=== PATIENT | female | born 1950 | race Caucasian/White ===

== ENCOUNTER 2017-04-05 10:38 | Emergency (ER) | payer MEDICARE ==
[~2017-04-05] VITALS: Ht 182.9 cm; Wt 77.0 kg
[~2017-04-05 10:38] MED LIST: ALPR.5 PO; BACT800T5 PO; LISI-515 PO; LYRI50CA PO; NEXI40CA PO; PROZ20CA11 PO
[2017-04-05 10:43] VITALS: BP 156/74; PULSE 59; RESP 14; TEMP 98.4; O2SAT 98
--- NOTE | 2017-04-05 10:48 | PD ---
HPI Chief Complaint: GI Complaint Time Seen by Provider: 10:47 Travel History International Travel<30 days: No Contact w/Intl Traveler<30days: No Traveled to known affect area: No History of Present Illness HPI 66-year-old female presents the emergency department with 2 week history of nausea and vomiting. She states it's "probably just my nerves". PFSH Past Medical History Arthritis: Yes Anxiety: Yes Depression: Yes Heart Rhythm Problems: No Cancer: Yes (left breast, lumpectomy and uterine cancer,SKIN CA) Cardiovascular Problems: Yes High Cholesterol: No Chemotherapy: Yes (last dose 2012) Chest Pain: No Congestive Heart Failure: No Cerebrovascular Accident: No Diabetes: No Diminished Hearing: No Diverticulitis: Yes Fibromyalgia: Yes Gastrointestinal Disorders: No GERD: Yes Genitourinary: No Hiatal Hernia: Yes Hypertension: Yes Musculoskeletal: Yes Neurologic: No Psychiatric: Yes Reproductive: Yes Respiratory: No Integumentary: Yes (HX GANGRENE LEFT FOOT) Migraines: Yes (meditation no medication) Myocardial Infarction: No Radiation Therapy: Yes (COMPLETED 12WKS) ?: Not Past Surgical History Abdominal Surgery: Yes Appendectomy: Yes Cardiac Surgery: No Ear Surgery: No Endocrine Surgery: No Eye Surgery: No Genitourinary Surgery: No Gynecologic Surgery: Yes (uterine removed r/t cancer) Hysterectomy: Yes Neurologic Surgery: No Oral Surgery: No Thoracic Surgery: No Other Surgery: Yes (right forearm "plate"; L 4&5 fused, left chest infusaport in and out (2012)) Social History Alcohol Use: No (denies) Tobacco Use: No (QUIT ) Substance Use: Yes Allergies-Medications (Allergen,Severity, Reaction): Coded Allergies: codeine (Unverified Allergy, Severe, Nausea/Vomiting, 04/05/17) penicillin G (Unverified Allergy, Severe, rash, 04/05/17) prochlorperazine (Unverified Allergy, Severe, seizure activity, 04/05/17) amoxicillin (Unverified Allergy, Unknown, PT DOES NOT REMEMBER, 04/05/17) Reported Meds & Prescriptions Reported Meds & Active Scripts Active Bactrim DS (Sulfamethoxazole-Trimethoprim) 800-160 Mg Tab 1 Tab PO BID 7 Days Reported Ibuprofen 400 Mg Tab 400 Mg PO Q6H PRN Nexium (Esomeprazole DR) 40 Mg Capdr 40 Mg PO DAILY Xanax (Alprazolam) 0.5 Mg Tab 0.5 Mg PO Q6H PRN Prozac (Fluoxetine HCl) 20 Mg Cap 20 Mg PO DAILY Lisinopril 20 Mg Tab 20 Mg PO DAILY Lyrica (Pregabalin) 50 Mg Cap 50 Mg PO BID Data Data Last Documented VS Vital Signs Date Time Temp Pulse Resp B/P (MAP) Pulse Ox O2 Delivery O2 Flow Rate FiO2 04/05/17 10:43 98.4 59 14 156/74 (101) 98 Orders Orders Complete Blood Count With Diff (04/05/17 11:12) Comprehensive Metabolic Panel (04/05/17 11:12) ^ Insert Iv (04/05/17 11:12) Sodium Chlor 0.9% 1000 Ml Inj (Ns 1000 M (04/05/17 11:15) Ondansetron Inj (Zofran Inj) (04/05/17 11:15) Labs Laboratory Tests Test 04/05/17 12:00 White Blood Count 3.7 TH/MM3 Red Blood Count 3.88 MIL/MM3 Hemoglobin 11.9 GM/DL Hematocrit 34.1 % Mean Corpuscular Volume 88.0 FL Mean Corpuscular Hemoglobin 30.6 PG Mean Corpuscular Hemoglobin Concent 34.8 % Red Cell Distribution Width 13.5 % Platelet Count 251 TH/MM3 Mean Platelet Volume 7.6 FL Neutrophils (%) (Auto) 59.7 % Lymphocytes (%) (Auto) 27.9 % Monocytes (%) (Auto) 6.6 % Eosinophils (%) (Auto) 2.7 % Basophils (%) (Auto) 3.1 % Neutrophils # (Auto) 2.2 TH/MM3 Lymphocytes # (Auto) 1.0 TH/MM3 Monocytes # (Auto) 0.2 TH/MM3 Eosinophils # (Auto) 0.1 TH/MM3 Basophils # (Auto) 0.1 TH/MM3 CBC Comment DIFF FINAL Differential Comment Blood Urea Nitrogen 20 MG/DL Creatinine 0.85 MG/DL Random Glucose 89 MG/DL Total Protein 7.0 GM/DL Albumin 3.6 GM/DL Calcium Level 9.0 MG/DL Alkaline Phosphatase 67 U/L Aspartate Amino Transf (AST/SGOT) 21 U/L Alanine Aminotransferase (ALT/SGPT) 26 U/L Total Bilirubin 0.4 MG/DL Sodium Level 140 MEQ/L Potassium Level 4.4 MEQ/L Chloride Level 109 MEQ/L Carbon Dioxide Level 23.0 MEQ/L Anion Gap 8 MEQ/L Estimat Glomerular Filtration Rate 67 ML/MIN Emir Kee Apr 05, 2017 10:48
[2017-04-05] MEDS ORDERED: IBUP1TAB5 PO (11:07)
[2017-04-05] MEDS ORDERED: ONDANSETRON HCL 4 MG/2 ML VIAL IV PUSH ONE (11:15)
[2017-04-05] MEDS ORDERED: SODIUM CHLOR 0.9% 1000 ML INJ 1,000 ML IV ONE (11:15)
[2017-04-05 12:42] LABS: AUTOMATED NEUTROPHIL # 2.2 TH/MM3 (1.8-7.7); BASOPHIL # 0.1 TH/MM3 (0-0.2); BASOPHIL % 3.1 % (0.0-2.0); EOSINOPHIL # 0.1 TH/MM3 (0-0.4); EOSINOPHIL % 2.7 % (0.0-4.0); HEMATOCRIT 34.1 % (35.0-46.0); HEMOGLOBIN 11.9 GM/DL (11.6-15.3); LYMPH % 27.9 % (9.0-44.0); MEAN CORPUSCULAR HEMOGLOBIN 30.6 PG (27.0-34.0); MEAN CORPUSCULAR HGB CONC 34.8 % (32.0-36.0); MEAN PLATELET VOLUME 7.6 FL (7.0-11.0); MONO % 6.6 % (0.0-8.0); MONOCYTE # 0.2 TH/MM3 (0-0.9); NEUT % 59.7 % (16.0-70.0); PLATELET COUNT 251 TH/MM3 (150-450); RED BLOOD COUNT 3.88 MIL/MM3 (4.00-5.30); RED CELL DISTRIBUTION WIDTH 13.5 % (11.6-17.2); WHITE BLOOD COUNT 3.7 TH/MM3 (4.0-11.0)
[2017-04-05 12:55] LABS: ALBUMIN 3.6 GM/DL (3.4-5.0); AST (GOT) 21 U/L (15-37); BLOOD UREA NITROGEN 20 MG/DL (7-18); CHLORIDE 109 MEQ/L (98-107); CREATININE 0.85 MG/DL (0.50-1.00); GLOMERULAR FILTRATION RATE 67 ML/MIN (>89); GLUCOSE,RANDOM 89 MG/DL (74-106); SODIUM (NA) 140 MEQ/L (136-145)
[2017-04-05 12:56] LABS: ALT (GPT) 26 U/L (10-53)
[2017-04-05 12:58] LABS: ALKALINE PHOSPHATASE 67 U/L (45-117); TOTAL BILIRUBIN ADULT 0.4 MG/DL (0.2-1.0)
[2017-04-05] MEDS ORDERED: DOXY100C PO (13:34)
--- NOTE | 2017-04-05 13:34 | PD ---
HPI Chief Complaint: GI Complaint Time Seen by Provider: 10:47 Travel History International Travel<30 days: No Contact w/Intl Traveler<30days: No Traveled to known affect area: No History of Present Illness HPI This is a 66 year-old female who has a history of breast cancer who presents to the emergency department reporting that she's had nasal congestion, constant, for several weeks, with a nonproductive cough and generalized malaise. Her symptoms are moderate severity, with no associated fevers or chills. The patient reports that it several months ago she had a right mastectomy and she is scheduled in 2 weeks for a left mastectomy at [facility]. She is concerned she has a sinus infection and she wants to get on an antibiotic so that it doesn't delay her surgery. PFSH Past Medical History Arthritis: Yes Anxiety: Yes Depression: Yes Heart Rhythm Problems: No Cancer: Yes (left breast, lumpectomy and uterine cancer,SKIN CA) Cardiovascular Problems: Yes High Cholesterol: No Chemotherapy: Yes (last dose 2012) Chest Pain: No Congestive Heart Failure: No Cerebrovascular Accident: No Diabetes: No Diminished Hearing: No Diverticulitis: Yes Fibromyalgia: Yes Gastrointestinal Disorders: No GERD: Yes Genitourinary: No Hiatal Hernia: Yes Hypertension: Yes Musculoskeletal: Yes Neurologic: No Psychiatric: Yes Reproductive: Yes Respiratory: No Integumentary: Yes (HX GANGRENE LEFT FOOT) Migraines: Yes (meditation no medication) Myocardial Infarction: No Radiation Therapy: Yes (COMPLETED 12WKS) ?: Not Past Surgical History Abdominal Surgery: Yes Appendectomy: Yes Cardiac Surgery: No Ear Surgery: No Endocrine Surgery: No Eye Surgery: No Genitourinary Surgery: No Gynecologic Surgery: Yes (uterine removed r/t cancer) Hysterectomy: Yes Mastectomy: Yes Neurologic Surgery: No Oral Surgery: No Thoracic Surgery: No Other Surgery: Yes (right forearm "plate"; L 4&5 fused, left chest infusaport in and out (2012)) Social History Alcohol Use: No (denies) Tobacco Use: No (QUIT ) Substance Use: Yes Allergies-Medications (Allergen,Severity, Reaction): Coded Allergies: codeine (Unverified Allergy, Severe, Nausea/Vomiting, 04/05/17) penicillin G (Unverified Allergy, Severe, rash, 04/05/17) prochlorperazine (Unverified Allergy, Severe, seizure activity, 04/05/17) amoxicillin (Unverified Allergy, Unknown, PT DOES NOT REMEMBER, 04/05/17) Reported Meds & Prescriptions Reported Meds & Active Scripts Active Bactrim DS (Sulfamethoxazole-Trimethoprim) 800-160 Mg Tab 1 Tab PO BID 7 Days Reported Ibuprofen 400 Mg Tab 400 Mg PO Q6H PRN Nexium (Esomeprazole DR) 40 Mg Capdr 40 Mg PO DAILY Xanax (Alprazolam) 0.5 Mg Tab 0.5 Mg PO Q6H PRN Prozac (Fluoxetine HCl) 20 Mg Cap 20 Mg PO DAILY Lisinopril 20 Mg Tab 20 Mg PO DAILY Lyrica (Pregabalin) 50 Mg Cap 50 Mg PO BID Review of Systems Except as stated in HPI: all other systems reviewed are Neg Physical Exam Narrative GENERAL:Well appearing, no acute distress SKIN: Well healed scar from right mastectomy. HEAD: Atraumatic. Normocephalic. EYES: Pupils equal and round. No injection or drainage. ENT: Moist mucous membranes NECK: Trachea midline. CARDIOVASCULAR: Regular rate and rhythm. No murmur appreciated. RESPIRATORY: Clear to auscultation. Breath sounds equal bilaterally. GASTROINTESTINAL: Abdomen soft, non-tender, nondistended. MUSCULOSKELETAL: No obvious deformities. NEUROLOGICAL: Awake and alert. No obvious cranial nerve deficits. Moving all extremities. PSYCHIATRIC: Tangential with pressured speech, insight and judgment preserved Data Data Last Documented VS Vital Signs Date Time Temp Pulse Resp B/P (MAP) Pulse Ox O2 Delivery O2 Flow Rate FiO2 04/05/17 10:43 98.4 59 14 156/74 (101) 98 Orders Orders Complete Blood Count With Diff (04/05/17 11:12) Comprehensive Metabolic Panel (04/05/17 11:12) ^ Insert Iv (04/05/17 11:12) Sodium Chlor 0.9% 1000 Ml Inj (Ns 1000 M (04/05/17 11:15) Ondansetron Inj (Zofran Inj) (04/05/17 11:15) Labs Laboratory Tests Test 04/05/17 12:00 White Blood Count 3.7 TH/MM3 Red Blood Count 3.88 MIL/MM3 Hemoglobin 11.9 GM/DL Hematocrit 34.1 % Mean Corpuscular Volume 88.0 FL Mean Corpuscular Hemoglobin 30.6 PG Mean Corpuscular Hemoglobin Concent 34.8 % Red Cell Distribution Width 13.5 % Platelet Count 251 TH/MM3 Mean Platelet Volume 7.6 FL Neutrophils (%) (Auto) 59.7 % Lymphocytes (%) (Auto) 27.9 % Monocytes (%) (Auto) 6.6 % Eosinophils (%) (Auto) 2.7 % Basophils (%) (Auto) 3.1 % Neutrophils # (Auto) 2.2 TH/MM3 Lymphocytes # (Auto) 1.0 TH/MM3 Monocytes # (Auto) 0.2 TH/MM3 Eosinophils # (Auto) 0.1 TH/MM3 Basophils # (Auto) 0.1 TH/MM3 CBC Comment DIFF FINAL Differential Comment Blood Urea Nitrogen 20 MG/DL Creatinine 0.85 MG/DL Random Glucose 89 MG/DL Total Protein 7.0 GM/DL Albumin 3.6 GM/DL Calcium Level 9.0 MG/DL Alkaline Phosphatase 67 U/L Aspartate Amino Transf (AST/SGOT) 21 U/L Alanine Aminotransferase (ALT/SGPT) 26 U/L Total Bilirubin 0.4 MG/DL Sodium Level 140 MEQ/L Potassium Level 4.4 MEQ/L Chloride Level 109 MEQ/L Carbon Dioxide Level 23.0 MEQ/L Anion Gap 8 MEQ/L Estimat Glomerular Filtration Rate 67 ML/MIN MDM Medical Decision Making Medical Screen Exam Complete: Yes Emergency Medical Condition: Yes Differential Diagnosis Electrolyte abnormality, dehydration, sinusitis, pneumonia Narrative Course This is a 66-year-old female who has a reported history of breast cancer who presents to the emergency department with nasal congestion that's been going on for several weeks. She is nontoxic appearing on exam. Labs were obtained which were reassuring. Patient will be discharged on oral antibiotics and can follow-up with her oncologist. Patient has psychiatric undertones on exam with pressured speech and she is quite tangential. I think she can make her own decisions and I don't think she needs psychiatric admission criteria. Patient will be discharged home. Diagnosis Primary Impression: Sinusitis Qualified Codes: J01.00 - Acute maxillary sinusitis, unspecified Patient Instructions: General Instructions Additional Instructions: If you develop severe worsening headache, persistent vomiting, numbness, weakness, difficulty walking or difficulty talking return to the emergency department immediately. Med/Other Pt SpecificInfo: Prescription(s) given Scripts Doxycycline Hyclate (Doxycycline Hyclate) 100 Mg Cap 100 MG PO BID for Infection, #20 CAP 0 Refills Prov: Crissy Jonas MD 04/05/17 Disposition: 01 DISCHARGE HOME Condition: Stable Crissy Jonas MD Apr 05, 2017 13:34
== END 2017-04-05 13:52 | disposition home or self-care (01) ==
LOC: NEPD 10:38
DX: J01.00 Acute maxillary sinusitis, unspecified (principal); I10 Essential (primary) hypertension; K21.9 Gastro-esophageal reflux disease without esophagitis; M79.7 Fibromyalgia; F32.9 Major depressive disorder, single episode, unspecified; F41.9 Anxiety disorder, unspecified; Z85.3 Personal history of malignant neoplasm of breast; Z85.42 Personal history of malignant neoplasm of other parts of uterus; Z87.891 Personal history of nicotine dependence
CPT/HCPCS: 80053; 85025; 96361; 96374; 99284; J2405; J7030

== ENCOUNTER 2017-06-09 17:18 | Emergency (ER) | payer MEDICARE ==
[~2017-06-09] VITALS: Ht 182.9 cm; Wt 90.0 kg
[~2017-06-09 17:18] MED LIST changes: +DOXY100C PO; +IBUP1TAB5 PO
[2017-06-09 17:30] VITALS: BP 142/74; PULSE 59; RESP 16; TEMP 98.5; O2SAT 98
[2017-06-09 19:21] LABS: AUTOMATED NEUTROPHIL # 2.4 TH/MM3 (1.8-7.7); BASOPHIL # 0.1 TH/MM3 (0-0.2); BASOPHIL % 1.7 % (0.0-2.0); EOSINOPHIL # 0.3 TH/MM3 (0-0.4); EOSINOPHIL % 6.9 % (0.0-4.0); HEMATOCRIT 38.5 % (35.0-46.0); HEMOGLOBIN 13.8 GM/DL (11.6-15.3); LYMPH % 32.5 % (9.0-44.0); LYMPHOCYTE # 1.5 TH/MM3 (1.0-4.8); MEAN CELL VOLUME 89.3 FL (80.0-100.0); MEAN CORPUSCULAR HEMOGLOBIN 31.9 PG (27.0-34.0); MEAN CORPUSCULAR HGB CONC 35.8 % (32.0-36.0); MEAN PLATELET VOLUME 7.1 FL (7.0-11.0); MONO % 6.4 % (0.0-8.0); MONOCYTE # 0.3 TH/MM3 (0-0.9); NEUT % 52.5 % (16.0-70.0); PLATELET COUNT 269 TH/MM3 (150-450); RED BLOOD COUNT 4.31 MIL/MM3 (4.00-5.30); RED CELL DISTRIBUTION WIDTH 13.1 % (11.6-17.2); WHITE BLOOD COUNT 4.6 TH/MM3 (4.0-11.0)
[2017-06-09 19:32] LABS: ALBUMIN 3.9 GM/DL (3.4-5.0); AST (GOT) 14 U/L (15-37); BICARBONATE 25.1 MEQ/L (21.0-32.0); BLOOD UREA NITROGEN 25 MG/DL (7-18); CALCIUM 9.1 MG/DL (8.5-10.1); CHLORIDE 107 MEQ/L (98-107); GLOMERULAR FILTRATION RATE 55 ML/MIN (>89); GLUCOSE,RANDOM 96 MG/DL (74-106); SODIUM (NA) 140 MEQ/L (136-145)
[2017-06-09 19:33] LABS: ALT (GPT) 25 U/L (10-53)
[2017-06-09 19:35] LABS: ALKALINE PHOSPHATASE 78 U/L (45-117); TOTAL BILIRUBIN ADULT 0.3 MG/DL (0.2-1.0); TOTAL PROTEIN 7.8 GM/DL (6.4-8.2)
[2017-06-09 19:52] LABS: BACTERIA, URINE RARE /hpf; BILIRUBIN, URINE NEG (NEG); BLOOD, URINE NEG (NEG); GLUCOSE,URINE NEG (NEG); HYALINE CAST, URINE 7 /lpf (RARE); KETONE, URINE NEG (NEG); MUCUS URINE FEW /lpf (OCC); NITRITE,URINE NEG (NEG); SQUAMOUS EPITHELIAL CELL URINE 10 /hpf (0-5); URINE COLOR YELLOW (YELLW/STRAW); URINE LEUKOCYTE ESTERASE LARGE (NEG)
== END 2017-06-09 20:15 | disposition left against medical advice (07) ==
LOC: NED 17:18
DX: F99 Mental disorder, not otherwise specified (principal); Z53.21 Procedure and treatment not carried out due to patient leaving prior to being seen by health care provider
CPT/HCPCS: 80053; 80307; 81001; 85025; 87086; 99281